=== PATIENT | female | born 1935 | race Caucasian/White ===

== ENCOUNTER 2016-11-28 12:38 | Emergency (ER) | payer OTHER ==
[~2016-11-28] VITALS: Ht 152.4 cm; Wt 50.0 kg
[~2016-11-28 12:38] MED LIST: ASPI81 PO; CHOL1TAB6 PO; CORE12.5 PO; CRAN500C2 PO; GLIM1 PO; LEVO75TA3 PO; LORA10TA PO; OMPR20CCR PO; PARO20 PO; SIMV40 PO
[2016-11-28 12:42] VITALS: BP 153/68; PULSE 86; RESP 14; TEMP 98; O2SAT 83
[2016-11-28 12:58] VITALS: O2SAT 96
--- NOTE | 2016-11-28 13:37 | PD ---
HPI Chief Complaint: Pain: Acute or Chronic Time Seen by Provider: 13:37 Travel History International Travel<30 days: No Contact w/Intl Traveler<30days: No Traveled to known affect area: No History of Present Illness HPI 81 year old female with history of pulmonary fibrosis on 3 L nasal cannula 24 hours a day, diabetes, hypothyroidism, presents to the emergency department for evaluation of right hip pain. Patient states about one week ago she fell getting out of the shower. She landed on her right posterior hip. She also struck her right shoulder. She was able to get herself up. She has been ambulatory since then without difficulty but has developed a right posterior lateral hip pain over the last couple of days that is unbearable. She states today she is unable to bear weight on the right lower extremity secondary to the pain. Pain radiates into her groin. Denies any new injury. No fever or chills. No urinary symptoms. She has no other symptoms to report. PFSH Past Medical History Hx Anticoagulant Therapy: No Blood Disorders: No Cancer: Yes (BREAST RIGHT) Cardiovascular Problems: Yes (STENT x1; MIx1) High Cholesterol: Yes Chemotherapy: Yes (2003) Diabetes: Yes Diminished Hearing: No Hypertension: Yes Implanted Vascular Access Dvce: No Musculoskeletal: Yes (ARTHRITIS IN HANDS) Neurologic: No Psychiatric: No Respiratory: Yes Thyroid Disease: Yes Past Surgical History Abdominal Surgery: Yes (APPENDECTOMY) Gynecologic Surgery: Yes (PARTIAL HYSTERECTOMY) Hysterectomy: Yes (PARTIAL) Mastectomy: Yes (right 2003) Pacemaker: No Thoracic Surgery: Yes (RT BREAST MASTECTOMY) Other Surgery: Yes Social History Alcohol Use: No Tobacco Use: No Substance Use: No Allergies-Medications (Allergen,Severity, Reaction): Coded Allergies: Penicillin (Verified Allergy, Severe, THROAT CLOSES, 05/23/16) Reported Meds & Prescriptions Reported Meds & Active Scripts Active Tramadol (Tramadol HCl) 50 Mg Tab 50 Mg PO Q8H PRN Reported Claritin 10 Mg Tab (Loratadine) 10 Mg Tab 10 Mg PO DAILY Amaryl1 M1 1 Mg Tab 1 Mg PO DAILYAC D 1000 1,000 Unit PO DAILY Cranberry (Cranberry (Vaccinium Macrocarp) 500 Mg Cap 500 Mg PO DAILY Zocor 40 Mg Tab40 Mg 40 Mg Tab 40 Mg PO HS Prilosec 20 Mg Cap (Omeprazole) 20 Mg Capcr 20 Mg PO DAILY Paxil 20 Mg Tab (Paroxetine Hcl) 20 Mg Tab 10 Mg PO DAILY Coreg (Carvedilol) 12.5 Mg Tab 12.5 Mg PO BID Aspirin 81 Mg Tab 81 Mg PO DAILY Levothyroxine 75 mcg (Levothyroxine Sodium) 75 Mcg Tab 75 Mcg PO DAILY Review of Systems Except as stated in HPI: all other systems reviewed are Neg Physical Exam Narrative GENERAL: Well-nourished elderly female patient, sitting in the chair, in no acute distress SKIN: Warm and dry. HEAD: Atraumatic. Normocephalic. EYES: Pupils equal and round. No scleral icterus. No injection or drainage. ENT: No nasal bleeding or discharge. Mucous membranes pink and moist. NECK: Trachea midline. No JVD. CARDIOVASCULAR: Regular rate and rhythm. RESPIRATORY: No accessory muscle use. Diminished but overall clear to auscultation. Breath sounds equal bilaterally. GASTROINTESTINAL: Abdomen soft, non-tender, nondistended. Hepatic and splenic margins not palpable. MUSCULOSKELETAL: No obvious deformities. No clubbing. No cyanosis. No edema. Tenderness elicited to palpation over the anterior lateral aspect of the right hip. No obvious deformity however the patient is more comfortable with her right foot rotated outward. No definite shortening. I can passively flex and extend the hip, without difficulty. External rotation does cause some pain for the patient. Distal pulses palpable. Cap refill is within normal limits. NEUROLOGICAL: Awake and alert. No obvious cranial nerve deficits. Motor grossly within normal limits. Normal speech. PSYCHIATRIC: Appropriate mood and affect; insight and judgment normal. Data Data Last Documented VS Vital Signs Date Time Temp Pulse Resp B/P Pulse Ox O2 Delivery O2 Flow Rate FiO2 11/28/16 12:58 96 11/28/16 12:42 98.0 86 14 153/68 Room Air Orders Hip, Uni(Ap&Lat) W Ap Pelvis (11/28/16 ) [facility] Medical Decision Making Medical Screen Exam Complete: Yes Emergency Medical Condition: Yes Medical Record Reviewed: Yes Differential Diagnosis contusion versus sprain versus fracture versus dislocation Narrative Course 81 year-old female presents to the emergency department for evaluation right hip pain. Imaging studies are ordered in triage of acute abnormalities identified, lab work will be added. X-ray results with no acute bony abnormality. I discussed the patient my attending physician Dr. Juárez. She has assessed the patient and agrees the patient can discharge. She'll be given additional pain control. Patient is instructed to follow with a primary care provider and return immediately with any acute worsening of symptoms. Diagnosis Primary Impression: Right hip pain Referrals: Orthopaedic Surgeon Primary Care Physician Patient Instructions: General Instructions, Hip Pain (ED) Additional Instructions: Ice and/or warm moist heat may help to alleviate symptoms Follow up with your primary care provider Seek orthopedic evaluation if symptoms persist Return to ED with acute worsening of symptoms Med/Other Pt SpecificInfo: Prescription(s) given Scripts Tramadol 50 Mg Tab50 Mg PO Q8H PRN (PAIN) #15 TAB Ref 0 Prov:Luiza Juárez MD 11/28/16 Disposition: 01 DISCHARGE HOME Condition: Stable Lydia Padron Nov 28, 2016 13:37
--- NOTE | 2016-11-28 14:27 | RADRPT ---
EXAM DATE/TIME: 11/28/2016 14:17 [facility] COMPARISON: No previous studies available for comparison. INDICATIONS : Right hip pain after a fall. MEDICAL HISTORY : Hypertension. SURGICAL HISTORY : None. ENCOUNTER: Initial ACUITY: 1 week PAIN SCORE: 9/10 LOCATION: Right hip. FINDINGS: Examination of the right hip was performed with AP Pelvis. The primary and secondary trabecular vishnu phu of the femoral neck is intact. The hip joint is of normal width without significant sclerosis or bony hypertrophy. The acetabulum is grossly intact. Extensive vascular calcifications are appreciat ed. CONCLUSION: No acute bony abnormality. Lenny Hoff MD on November 28, 2016 at 14:24 Board Certified Radiologist. This report was verified electronically.
[2016-11-28] MEDS ORDERED: TRAM50TA PO (14:44)
--- NOTE | 2016-11-28 14:44 | PD ---
Data Data Last Documented VS Vital Signs Date Time Temp Pulse Resp B/P Pulse Ox O2 Delivery O2 Flow Rate FiO2 11/28/16 12:58 96 11/28/16 12:42 98.0 86 14 153/68 Room Air Orders Hip, Uni(Ap&Lat) W Ap Pelvis (11/28/16 ) MDM Supervised Visit with JAISON: Yes Narrative Course I, Dr. Juárez, have reviewed the advance practice practioner's documentation and am in agreement, met with the patient face to face, made the diagnosis, and the medical decision making was done by me. *My assessment and Findings: 81-year-old female here with right hip pain status post fall. She is able to ambulate independently without difficulty. On exam she has pain with extreme flexion, internal and external rotation of the right hip that her symptoms are mild. No shortening, good distal sensation and pulses. Differential includes fracture, dislocation, contusion. X-ray negative for acute abnormalities. Patient was discharged home with [facility] and outpatient PCP follow-up. Condition: Stable Luiza Juárez MD Nov 28, 2016 14:43
== END 2016-11-28 15:57 | disposition home or self-care (01) ==
LOC: NETRI 12:38
DX: M25.551 Pain in right hip (principal); J84.10 Pulmonary fibrosis, unspecified; E11.9 Type 2 diabetes mellitus without complications; E78.00 Pure hypercholesterolemia, unspecified; E03.9 Hypothyroidism, unspecified; I10 Essential (primary) hypertension; Z99.81 Dependence on supplemental oxygen; Z85.3 Personal history of malignant neoplasm of breast; Z86.79 Personal history of other diseases of the circulatory system; Z87.39 Personal history of other diseases of the musculoskeletal system and connective tissue; W18.39XA Other fall on same level, initial encounter; Y93.E1 Activity, personal bathing and showering; Y92.002 Bathroom of unspecified non-institutional (private) residence as the place of occurrence of the external cause
CPT/HCPCS: 73502; 99283